=== PATIENT | male | born 1955 | race Caucasian/White ===

== ENCOUNTER 2017-12-09 05:30 | Day surgery (SDC) | payer OTHER ==
[~2017-12-09] VITALS: Ht 172.7 cm; Wt 105.7 kg
[~2017-12-09 05:30] MED LIST: ADULT LOW DOSE81 MG PO; AMLODIPINE BESYL5 MG PO; FERROUS SULFAT325 MG PO; GLIPIZIDE10 MG PO; HYDROCHLOROTHIA25 GM MISC; HYDROCHLOROTHIA25 MG PO; LANTUS100 UNITS/ SUB-Q; LISINOPRIL20 MG PO; MELOXICAM15 MG PO; METFORMIN HCL1000 MG PO; ONGLYZA5 MG PO; REFRESH TEARS15 ML OPTH; SERTRALINE HCL100 MG PO; SIMVASTATIN20 MG PO; SYNTHROID125 MCG PO
--- NOTE | 2017-12-09 09:02 | NUR ---
12/09/17 0901 Francine Villalba 0828-PATIENT ARRIVED TO PACU ON 10L MASK O2 SAT 100% PATIENT REACTIVE TO VOICE OPENING EYES DROWSY BACK TO SLEEP. RR EVEN. SR. DRESSING CDI TO LEFT GROIN ICE APPLIED. GLUCOSE 94 0900-WEANED TO 6L MASK O2 SAT 100%
--- NOTE | 2017-12-09 09:40 | NUR ---
PT IS BACK TO DS FROM PACU. HE IS AWAKE AND REQUESTING SOMETHING TO DRINK AND ASKING FOR HIS . HE STATES THAT HE WOULD LIKE TO GO HOME, HE IS EDUCATED ON DC CRITERIA. NO OTHER C/O'S AT THIS TIME. WILL REASSESS WITHIN THE HOUR. CALL LIGHT WITHIN REACH. SPOUSE AT BEDSIDE.
--- NOTE | 2017-12-09 10:54 | NUR ---
LE 1035: PT IS ASSISTED UP OOB, HE AMBULATES HIMSELF TO THE RESTROOM. HE ALSO INDICATES THAT HE IS READY TO GO HOME. HE IS INSTRUCTED ON HOW BEST TO DRESS AND TO OPEN HIS CURTAIN WHEN READY. LE 1040: PT IS GIVEN DC INSTRUCTIONS WITH HIS PRESENT. HE VERBALIZES UNDERSTANDING. HE IS TAKEN THE VEHICLE IN A WC, WHERE HE IS ABLE TO TRANSFER HIMSELF FROM WC TO CAR.
--- NOTE | 2017-12-10 08:20 | OR ---
[facility] [place] [facility] [address], [place] [address] Signed DATE OF OPERATION: 12/09/2017 SURGEON: Jesus Saleh MD PREOPERATIVE DIAGNOSIS: Left inguinal hernia. POSTOPERATIVE DIAGNOSIS: Left incarcerated indirect inguinal hernia. PROCEDURE(S) PERFORMED: Left Gen onlay mesh inguinal herniorrhaphy. ESTIMATED BLOOD LOSS: None. INDICATIONS: Laura is a 62-year-old gentleman, who I have known for quite some time, they have actually moved back to our area. In the meantime, he had his gastric bypass surgery and went from 380 pounds down to 230 pounds. He has been having pain and swelling in his left groin. Very difficult to examine him on physical exam, nevertheless, it looks like one can palpate the hernia on his left side, but not the right. He had a CT scan and pelvis performed and he does have bilateral inguinal hernias, however, the left is much larger than the right. The right does not seem to have any symptoms currently. Consequently, in the office, we decided we would repair his left inguinal hernia currently. I gave Laura and his a booklet on hernias, we looked at that together in detail. I explained to him the nature of an inguinal hernia along with the difference between the primary suture repair and a mesh repair. He also understands the expected intraop and postop course. We did review the risks including, but not limited to bleeding, infection, scarring, change in contour of the skin, ischemic orchitis, recurrent hernias, and chronic pain. He had expressed understanding and wished to proceed. PROCEDURE NOTE: I met with Laura and his in our preop area. We all agreed it was the left side, we marked that appropriately. After this, Laura was taken into the operating room and placed in the supine position under general endotracheal tube anesthesia. He was given preoperative antibiotics along with subcutaneous heparin. SCDs were utilized. He was then prepped and draped in the usual sterile fashion. A standard oblique incision was made over his left groin and carried down through the tissue bluntly and with the Electronically Signed By: JESUS SALEH MD 12/10/17 0820 PATIENT NAME: LAURA CAMILO OPERATIVE REPORT DATE OF : 53 REPORT #: [id number] PHYSICIAN: JESUS SALEH MD PCP: DELORIS ODONNELL MD REPORT IS CONFIDENTIAL AND NOT TO BE RELEASED WITHOUT AUTHORIZATION [facility] [address], [place] [address] Signed cautery. The external oblique fascia was opened along its length and developed medially and laterally. Iliohypogastric and ilioinguinal nerves were visualized and protected throughout the case. After this, the cord structures were elevated at the level of pubic tubercle with the help of a Rianna drain. We could see the direct space was intact. He had a arxemvor-pp-owois indirect inguinal hernia contained fat, this stretched down just slightly past his pubic tubercle, it took a few minutes to separate that bluntly from the cord structures. The neck of the hernia sac was suture ligated with 2-0 PDS suture. The sac was then amputated and passed off the field. After this, a piece of flat Prolene mesh was cut to fit his groin and a slit was made in the mesh to accommodate the cord structures at the level of deep ring. The mesh was held in place medially and laterally with help of running #1 Prolene suture. This gave excellent coverage of the direct and indirect spaces. After this, local anesthetic was copiously injected into the operative field. The wound was irrigated and suctioned out until clear. We closed the external oblique fascia over the repair with a running #2-0 PDS suture. The Javy's fascia was reapproximated in a running 3-0 Monocryl suture. The dermis was reapproximated with interrupted 3-0 subcuticular Monocryl sutures. The skin edges were then reapproximated in a running 6-0 fast absorbing plain gut suture. Dry gauze and tape were then applied. Laura was then awakened from his anesthesia, extubated in the OR, and taken to recovery room in stable condition. Jessu Saleh MD ALB/MODL /[id number] cc: MD Jesus Ocampo MD Copies: DELORIS ODONNELL MD, ANDREW L MD ~ Electronically Signed By: JESUS SALEH MD 12/10/17 0820 PATIENT NAME: LAURA CAMILO OPERATIVE REPORT DATE OF : 53 REPORT #: [id number] PHYSICIAN: JESUS SALEH MD PCP: DELORIS ODONNELL MD REPORT IS CONFIDENTIAL AND NOT TO BE RELEASED WITHOUT AUTHORIZATION
== END 2017-12-09 10:40 | disposition home or self-care (01) ==
LOC: DS 05:30
PROVIDERS: Colon & Rectal Surgery
PROC: 0YU60JZ Supplement Left Inguinal Region with Synthetic Substitute, Open Approach (ICD-10-PCS; principal; 2017-12-09 06:45)
DX: K40.30 Unilateral inguinal hernia, with obstruction, without gangrene, not specified as recurrent (principal); I10 Essential (primary) hypertension; E78.5 Hyperlipidemia, unspecified; E11.9 Type 2 diabetes mellitus without complications; E66.9 Obesity, unspecified; M17.0 Bilateral primary osteoarthritis of knee; M47.9 Spondylosis, unspecified; F32.9 Major depressive disorder, single episode, unspecified; E66.01 Morbid (severe) obesity due to excess calories; E78.00 Pure hypercholesterolemia, unspecified; Z87.891 Personal history of nicotine dependence; Z87.442 Personal history of urinary calculi; Z88.0 Allergy status to penicillin; Z88.8 Allergy status to other drugs, medicaments and biological substances; Z79.4 Long term (current) use of insulin; Z79.82 Long term (current) use of aspirin; Z79.899 Other long term (current) drug therapy; Z68.35 Body mass index [BMI] 35.0-35.9, adult
CPT/HCPCS: C1781; J0330; J1100; J1644; J1885; J2250; J2405; J2704; J2765; J3010; J7120

== ENCOUNTER 2022-12-06 08:36 | Emergency (ER) | payer OTHER, MEDICARE ==
[~2022-12-06] VITALS: Ht 172.7 cm; Wt 105.0 kg
[2022-12-06 09:40] LABS: BASOPHILS 0.6 % (0-2); EOSINOPHILS 3.2 % (0-6); HEMATOCRIT 37.3 % (35.0-50.0); HEMOGLOBIN 12.1 g/dL (12.0-18.0); LYMPHOCYTES 17.2 % (24-44); MCH 29.7 (27-36); MCHC 32.3 g/dl (30-36); MCV 91.9 fl (81-99); MONOCYTES 5.3 % (0-12); NEUTROPHILS 73.7 % (39-80); PLATELET COUNT 192 K/uL (140-440); RBC 4.06 M/ul (4.3-5.7); RDW 13.6 (10.5-15.0)
[2022-12-06 09:55] LABS: ALBUMIN 3.3 g/dL (3.4-5.0); ALBUMIN/GLOBULIN RATIO 1.03 (1.1-2.4); ANION GAP 17.1 (7-21); BILIRUBIN, TOTAL 0.3 ng/dL (0.2-1.0); BUN/CREATININE RATIO 16.66 (6.0-28.6); CALCIUM 8.3 mg/dL (8.5-10.1); CREATININE, SERUM 2.58 mg/dL (0.70-1.30); POTASSIUM 4.1 mmol/L (3.5-5.1); PROTEIN, TOTAL 6.5 g/dL (6.4-8.2)
[2022-12-06] MEDS ORDERED: DOXYCYCLINE HY100 MG PO (10:46)
[2022-12-06 10:54] LABS: ERYTHROCYTE SEDIMENTATION RATE 9
[2022-12-06 11:12] VITALS: BP 157/105
== END 2022-12-06 11:00 | disposition home or self-care (01) ==
LOC: ED 08:36
PROVIDERS: Internal Medicine
DX: L03.031 Cellulitis of right toe (principal); R79.82 Elevated C-reactive protein (CRP); E11.9 Type 2 diabetes mellitus without complications; I10 Essential (primary) hypertension; E03.9 Hypothyroidism, unspecified; Z88.0 Allergy status to penicillin; Z87.891 Personal history of nicotine dependence; Z79.84 Long term (current) use of oral hypoglycemic drugs; Z79.4 Long term (current) use of insulin; Z79.899 Other long term (current) drug therapy; Z79.82 Long term (current) use of aspirin; Z79.890 Hormone replacement therapy
CPT/HCPCS: 36415; 73630; 80053; 85025; 85651; 86140

== ENCOUNTER 2025-02-08 02:57 | Emergency (ER) | payer OTHER, MEDICARE ==
[~2025-02-08] VITALS: Ht 172.7 cm; Wt 102.8 kg
[~2025-02-08 02:57] MED LIST changes: +DOXYCYCLINE HY100 MG PO
[2025-02-08 03:39] LABS: BASOPHILS 0.8 % (0.2-1.2); EOSINOPHILS 5.4 % (0.8-7.0); LYMPHOCYTES 21.7 % (21.8-53.1); MCH 30.0 PG (25.7-32.2); MCHC 32.2 g/dL (32.3-36.5); MCV 93.2 fL (79.0-92.2); MONOCYTES 6.7 % (5.3-12.2); NEUTROPHILS 65.0 % (34.0-67.9); RBC 4.27 M/uL (4.63-6.08)
[2025-02-08] MEDS ORDERED: FAMOTIDINE 20 MG/ 2 ML VIAL IV ONE (04:00)
[2025-02-08 04:15] LABS: ALT (SGPT) 25.0 U/L (14-59); AST (SGOT) 17.0 U/L (15-37); GLOMERULAR FILTRATION RATE,EST 22.0 mL/min (>60); PROTEIN, TOTAL 6.9 g/dL (6.4-8.2); UREA NITROGEN 57.0 mg/dL (7-18)
[2025-02-08 04:17] LABS: LACTIC ACID, BLOOD <0.3 mmol/L (0.4-2.0)
[2025-02-08 04:45] LABS: BLOOD/HGB, URINE SMALL (Negative); KETONE, URINE NEGATIVE (Negative); LEUK ESTERASE, URINE SMALL (negative); NITRITE, URINE NEGATIVE (negative)
[2025-02-08] MEDS ORDERED: LACTATED RINGER'S 1,000 ML IV ONE (04:45)
[2025-02-08 04:50] LABS: BACTERIA, URINE 1+ /hpf (negative); CRYSTALS, URINE NONE SEEN (0-1+); EPITHELIAL CELLS, URINE SQUAMOUS 1+ /lpf (0-1+)
[2025-02-08 04:51] LABS: CASTS, URINE NONE SEEN \\lpf; REFLEX CULTURE, URINE Yes (No)
[2025-02-08] MEDS ORDERED: AMLODIPINE BESYLATE 10 MG TAB PO ONE (05:00)
[2025-02-08] MEDS ORDERED: CEPHALEXIN MONOHYDRATE 500 MG HOME.PACK PO ONE (05:45)
[2025-02-08] MEDS ORDERED: CEPHALEXIN500 M1 PO ×2 (06:34→06:37)
[2025-02-08 06:59] VITALS: BP 151/95
--- NOTE | 2025-02-10 13:10 | EKG ---
[facility] [address] [facility] [place] [address] Signed Normal sinus rhythm Left axis deviation Nonspecific intraventricular conduction delay Minimal voltage criteria for LVH, may be normal variant ( Arash product ) Abnormal ECG When compared with ECG of 03-DEC-2017 08:28, premature ventricular complexes are no longer present QT has lengthened Confirmed by Von El DO ([id number]) on 02/10/2025 1:10:33 PM Electronically Signed By: VON EL DO 02/10/25 1310 PATIENT NAME: MICHAEL CAMILO Electrocardiogram DATE OF : 53 PHYSICIAN: VON EL DO REPORT #: [id number] REPORT IS CONFIDENTIAL AND NOT TO BE RELEASED WITHOUT AUTHORIZATION
== END 2025-02-08 06:59 | disposition home or self-care (01) ==
LOC: ED 02:57
PROVIDERS: Internal Medicine
DX: I16.0 Hypertensive urgency (principal); I10 Essential (primary) hypertension; R19.7 Diarrhea, unspecified; E11.9 Type 2 diabetes mellitus without complications; Z87.891 Personal history of nicotine dependence; Z88.0 Allergy status to penicillin; Z79.899 Other long term (current) drug therapy
CPT/HCPCS: 36415; 71045; 80053; 81001; 83605; 83735; 84439; 84443; 84484; 85025; 87088; 93005; 93010; 96361; 96374; 96375; 99284-25; A9270; J0360; J2405; J7121